=== PATIENT | male | born 1940 | race Caucasian/White ===

== ENCOUNTER 2016-05-12 16:36 | Emergency (ER) | payer BC, MEDICARE ==
[~2016-05-12] VITALS: Ht 175.3 cm; Wt 65.0 kg
[~2016-05-12 16:36] MED LIST: ATOR10
[2016-05-12 16:51] VITALS: BP 130/76; PULSE 50; RESP 14; TEMP 98; O2SAT 98
[2016-05-12] MEDS ORDERED: ATOR10TA15 PO (17:32)
--- NOTE | 2016-05-12 17:56 | PD ---
HPI . left middle finger infection Chief Complaint: Skin Problem Time Seen by Provider: 17:55 Travel History International Travel<30 days: No Contact w/Intl Traveler<30days: No Traveled to known affect area: No History of Present Illness HPI 75 yr old male with no past history here with complaints of left middle finger infection. Patient was playing golf a few days ago and tells me that he stuck his finger into the hole and thinks that something may have poked him or either stung him. He is now complaining of infection to his left middle finger. He did visit an urgent care yesterday and was prescribed doxycycline, but tells me that despite taking antibiotics his finger is continuing to worsen. He is here seeking treatment for the left middle finger. He denies any fever chills. He does have pain at this digit and nowhere else. PFSH Past Medical History High Cholesterol: Yes Tetanus Vaccination: > 5 Years Influenza Vaccination: Yes Past Surgical History Cholecystectomy: Yes Tonsillectomy: Yes Social History Alcohol Use: Yes (OCC) Tobacco Use: No Substance Use: No Allergies-Medications (Allergen,Severity, Reaction): Coded Allergies: No Known Allergies (Verified , 05/13/16) Reported Meds & Prescriptions Reported Meds & Active Scripts Active Bactrim DS (Sulfamethoxazole-Trimethoprim) 800-160 Mg Tab 1 Tab PO BID Reported Atorvastatin (Atorvastatin Calcium) 10 Mg Tab 10 Mg PO HS Review of Systems General / Constitutional: No: Fever Eyes: No: Visual changes HENT: No: Headaches Cardiovascular: No: Chest Pain or Discomfort Respiratory: No: Shortness of Breath Gastrointestinal: No: Abdominal Pain Genitourinary: No: Dysuria Musculoskeletal: Positive: Pain (left middle finger) Skin: No Rash Neurologic: No: Weakness Psychiatric: No: Depression Endocrine: No: Polydipsia Hematologic/Lymphatic: No: Easy Bruising Physical Exam Narrative GENERAL: AAO x 3, no acute distress, Well-nourished, well-developed patient. SKIN: Warm and dry. No visible rashes or bruising. left middle finger with paronychia. edema, visible fluid collection, fluctuant, + pus. HEAD: Normocephalic and atraumatic. EYES: No scleral icterus. No injection or drainage. ENT: No nasal drainage noted. Mucous membranes pink. Airway patent. NECK: Supple, trachea midline. No JVD. CARDIOVASCULAR: Regular rate and rhythm without murmurs, gallops, or rubs. RESPIRATORY: Breath sounds equal bilaterally. No accessory muscle use. No rhonchi or rales. GASTROINTESTINAL: Abdomen soft, non-tender, nondistended. EXTREMITIES: No cyanosis or edema. BACK: Nontender without obvious deformity. No CVA tenderness. PSYCH: AAO x 3, normal affect. Data Data Last Documented VS Vital Signs Date Time Temp Pulse Resp B/P Pulse Ox O2 Delivery O2 Flow Rate FiO2 05/12/16 16:51 98.0 50 14 130/76 98 Orders Lidocaine 1% Inj (50 Ml) (Xylocaine 1% I (05/12/16 18:15) Wound Culture And Gram Stain (05/12/16 18:52) MDM Medical Decision Making Medical Screen Exam Complete: Yes Emergency Medical Condition: Yes Medical Record Reviewed: Yes Differential Diagnosis paronychia, abscess, cellulitis, less likely fracture Narrative Course 75 yr old male with no past history here with complaints of left middle finger infection. Patient was playing golf a few days ago and tells me that he stuck his finger into the hole and thinks that something may have poked him or either stung him. He is now complaining of infection to his left middle finger. He did visit an urgent care yesterday and was prescribed doxycycline, but tells me that despite taking antibiotics his finger is continuing to worsen. He is here seeking treatment for the left middle finger. He denies any fever chills. He does have pain at this digit and nowhere else. Patient seen and examined. He does have a significant paronychia to the left middle finger. Incision and drainage was performed. Patient tolerated without incident. Wound culture was collected. Advised start Bactrim and continue doxycycline. Recommend recheck tomorrow. Patient verbalized understanding of instructions, questions were answered, and thanked me for their care. I advised them if their condition worsens, please return to the nearest emergency room for further care. Procedures Procedure Narrative After the risks and benefits were discussed the following procedure was performed: INCISION AND DRAINAGE OF ABSCESS: The area was prepped and was sterilely draped. A subcutaneous wheal of 1 % Xylocaine with a total number 5 mL was used to anesthetize the area (left middle finger). The area was properly anesthetized. A number 11 scalpel was used to make a 0.3 -cm incision across the area of the abscess. Cultures were obtained. The abscess was drained an irrigated with normal saline. Sterile dressing applied. Patient advised to have packing removed in two days. Diagnosis Primary Impression: Paronychia of left middle finger Patient Instructions: Cellulitis (ED), General Instructions Additional Instructions: [place] for worsening signs of infection which include increased redness, increased warmth, purulent drainage, increased swelling or streaking. If you develop any worsening infection, return to the nearest emergency department or follow-up with primary care provider. Return tomorrow for wound check. Start taking the Bactrim daily. Use ibuprofen or Tylenol as needed for pain Med/Other Pt SpecificInfo: Prescription(s) given Scripts Sulfamethoxazole-Trimethoprim (Bactrim DS)800-160 Mg Tab1 Tab PO BID #20 TAB Prov:Vanessa Dawson DO 05/12/16 Ashley Leonard May 12, 2016 17:55
[2016-05-12] MEDS ORDERED: LIDOCAINE HCL 1% 50 ML VIAL INFIL ONE (18:15)
[2016-05-12] MEDS ORDERED: BACT800T5 PO (18:28)
== END 2016-05-12 18:36 | disposition home or self-care (01) ==
LOC: PHED 16:36 → PHEFT 18:36
DX: L03.012 Cellulitis of left finger (principal); B96.3 Hemophilus influenzae [H. influenzae] as the cause of diseases classified elsewhere; B95.62 Methicillin resistant Staphylococcus aureus infection as the cause of diseases classified elsewhere; E78.00 Pure hypercholesterolemia, unspecified
CPT/HCPCS: 10061; 86403; 87070; 87077; 87185; 87186; 87205

== ENCOUNTER 2016-05-13 13:50 | Emergency (ER) | payer MEDICARE ==
[~2016-05-13] VITALS: Ht 177.8 cm; Wt 64.5 kg
[~2016-05-13 13:50] MED LIST changes: +ATOR10TA15 PO; +BACT800T5 PO
[2016-05-13 14:00] VITALS: BP 124/70; PULSE 55; RESP 16; TEMP 98.1; O2SAT 97
--- NOTE | 2016-05-13 14:20 | PD ---
HPI . Patient here for recheck on his left middle finger paronychia Chief Complaint: Wound/Suture/Staple Re-Check Time Seen by Provider: 14:20 Travel History International Travel<30 days: No Contact w/Intl Traveler<30days: No Traveled to known affect area: No History of Present Illness HPI 75-year-old male here for recheck on his left middle finger paronychia. Yesterday patient was in the ED and we performed an incision and drainage on a left middle finger paronychia. Patient is here for recheck. He verbalizes that his pain is significantly improved and the swelling is going down. He is feeling better. He has no complaints. PFSH Past Medical History High Cholesterol: Yes Past Surgical History Cholecystectomy: Yes Tonsillectomy: Yes Social History Alcohol Use: Yes (OCC) Tobacco Use: No Substance Use: No Allergies-Medications (Allergen,Severity, Reaction): Coded Allergies: No Known Allergies (Verified , 05/13/16) Reported Meds & Prescriptions Reported Meds & Active Scripts Active Bactrim DS (Sulfamethoxazole-Trimethoprim) 800-160 Mg Tab 1 Tab PO BID Reported Atorvastatin (Atorvastatin Calcium) 10 Mg Tab 10 Mg PO HS Review of Systems General / Constitutional: No: Fever Eyes: No: Visual changes HENT: No: Headaches Cardiovascular: No: Chest Pain or Discomfort Respiratory: No: Shortness of Breath Gastrointestinal: No: Abdominal Pain Genitourinary: No: Dysuria Musculoskeletal: No: Pain Skin: No Rash Neurologic: No: Weakness Psychiatric: No: Depression Endocrine: No: Polydipsia Hematologic/Lymphatic: No: Easy Bruising Physical Exam Narrative GENERAL: AAO x 3, no acute distress, Well-nourished, well-developed patient. SKIN: Warm and dry. No visible rashes or bruising. left middle finger paronychia improved, decreased edema and erythema, less sensitivity to touch HEAD: Normocephalic and atraumatic. EYES: No scleral icterus. No injection or drainage. ENT: No nasal drainage noted. Mucous membranes pink. Airway patent. NECK: Supple, trachea midline. No JVD. CARDIOVASCULAR: Regular rate and rhythm without murmurs, gallops, or rubs. RESPIRATORY: Breath sounds equal bilaterally. No accessory muscle use. No rhonchi or rales. GASTROINTESTINAL: Abdomen soft, non-tender, nondistended. EXTREMITIES: No cyanosis or edema. finger movement normal BACK: Nontender without obvious deformity. No CVA tenderness. PSYCH: AAO x 3, normal affect. Data Data Last Documented VS Vital Signs Date Time Temp Pulse Resp B/P Pulse Ox O2 Delivery O2 Flow Rate FiO2 05/13/16 14:00 98.1 55 16 124/70 97 MDM Medical Decision Making Medical Screen Exam Complete: Yes Emergency Medical Condition: Yes Medical Record Reviewed: Yes Differential Diagnosis Paronychia, cellulitis, less likely osteomyelitis Narrative Course 75-year-old male here for recheck on his left middle finger paronychia. Yesterday patient was in the ED and we performed an incision and drainage on a left middle finger paronychia. Patient is here for recheck. He verbalizes that his pain is significantly improved and the swelling is going down. He is feeling better. He has no complaints. Patient seen and examined. Paronychia is significantly improved from yesterday. There is less swelling, erythema and decreased ecchymosis. Area has been cleaned with saline and Betadine. Clean sterile dressing has been reapplied. Advised dressing changes at least once a day. Discussed washing the area with soap and water daily. Return to the emergency room on Monday for recheck, he does not have a primary care provider locally. Patient verbalized understanding of instructions, questions were answered, and thanked me for their care. I advised them if their condition worsens, please return to the nearest emergency room for further care. Diagnosis Primary Impression: Paronychia of left middle finger Patient Instructions: Acute Wound Care (ED), General Instructions Additional Instructions: Continue to clean this finger at least twice daily with soap and water. Perform dressing changes at least twice daily. Return to the emergency room on Monday for recheck. [place] for worsening signs of infection which include increased redness, increased warmth, purulent drainage, increased swelling or streaking. Continue antibiotics until complete. Med/Other Pt SpecificInfo: No Change to Meds Disposition: 01 DISCHARGE HOME Condition: Stable Ashley Leonard May 13, 2016 14:20
== END 2016-05-13 14:44 | disposition home or self-care (01) ==
LOC: PHED 13:50 → PHEFT 14:44
DX: Z48.817 Encounter for surgical aftercare following surgery on the skin and subcutaneous tissue (principal)
CPT/HCPCS: 99281